=== PATIENT | female | born 1980 | race Caucasian/White ===

== ENCOUNTER 2021-04-24 08:26 | Emergency (ER) | payer MEDICAID, SELFPAY ==
--- NOTE | ~2021-04-24 | CT_ITS ---
EXAMINATION: CT abdomen pelvis w con DATE: 04/24/2021 09:58 INDICATION: Left lower quadrant abdominal pain. TECHNIQUE: Computed tomography (CT) of the abdomen and pelvis was performed with 100 mL Omnipaque 350 intravenous contrast. Automated exposure control and iterative reconstruction technique were employe d. The dose-length product was 403.92 mGy-cm. COMPARISON: None. FINDINGS: The visualized portions of the lung bases demonstrate an 11 mm nodule in left lower lobe co ntaining fat, consistent with a hamartoma. No pleural effusion. The liver, gallbladder, spleen, pancr eas, and adrenal glands are normal. There are 3 stones in right kidney measuring up to 4 mm. There ar e cysts in left kidney measuring up to 16 mm. There is a delayed left-sided contrast nephrogram. Ther e are approximately 9 stones in left kidney measuring up to 2 mm. There is mild left hydronephrosis a nd hydroureter. There is a 3 mm stone at left ureterovesicular junction. There is an intrauterine dev ice in expected position. There are no dilated loops of bowel. The appendix is not visualized. There are surgical changes in the stomach. There are no pathologically enlarged lymph nodes. There is no fr ee intraperitoneal fluid. There is mild thoracic and lumbar spondylosis. IMPRESSION: 1. 3 mm stone at left ureterovesicular junction with mild left hydronephrosis and hydroureter. 2. Small bilateral nonobstructing kidney stones. Reviewed, dictated and finalized at location A. IMPRESSION: 1. 3 mm stone at left ureterovesicular junction with mild left hydronephrosis a nd hydroureter. 2. Small bilateral nonobstructing kidney stones.
[2021-04-24 08:30] VITALS: BP 131/100; PULSE 87; RESP 18; TEMP 36.1; O2SAT 100
[2021-04-24] MEDS: MORPHINE SULFATE (*CRX) 4 MG/ML INJ IV PUSH (09:22)
[2021-04-24] MEDS: ONDANSETRON INJ 4 MG/2 ML VIAL IV PUSH (09:22)
[2021-04-24] MEDS: SODIUM CHLORIDE 0.9% IV 1,000 ML 999 ML IV CONT (09:23)
[2021-04-24 09:34] LABS: Basophils Absolute Auto 0.1 K/mm3 (0.0-0.1); Basophils Percent Auto 0.7 % (0.2-1.2); Eosinophils Absolute Auto 0.2 K/mm3 (0-0.3); Eosinophils Percent Auto 2.8 % (0-4.4); Hematocrit 41.7 % (37.0-47.0); Hemoglobin 13.8 g/dL (12.0-15.0); Immature Granulocyte Absolute 0.02 K/mm3 (0.00-0.031); Immature Granulocyte Percent A 0.2 % (0-0.5); Lymphocytes Absolute Auto 1.97 K/mm3 (0.9-3.2); Mean Corpuscular HGB Conc 33.1 g/dl (32-36); Mean Corpuscular Hemoglobin 31.8 pg (26-34); Mean Corpuscular Volume 96.1 fl (80-100); Mean Platelet Volume 10.8 fl (7.4-10.4); Monocytes Absolute Auto 0.7 K/mm3 (0.1-0.6); Monocytes Percent Auto 8.9 % (2.6-8.5); Neutrophils Absolute Auto 5.2 K/mm3 (1.3-6.7); Neutrophils Percent Auto 63.4 % (45.5-73.1); Platelet Count Result 279 k/mm3 (150-375); Red Blood Count 4.34 M/mm3 (4.2-5.4); Red Cell Distribution Width 12.3 % (11.5-14.5); White Blood Count 8.2 K/mm3 (4.5-10.0)
[2021-04-24 09:41] LABS: Alanine Aminotransferase 18 U/L (4-35); Albumin Level 4.6 g/dL (3.5-5.1); Alkaline Phosphatase 73 U/L (38-126); Anion Gap 8 mmol/L (8-16); Aspartate Amino Transferase 33 U/L (14-36); Bilirubin,Total 0.5 mg/dL (0.2-1.3); Blood Urea Nitrogen 12 mg/dL (7-17); Calcium 9.4 mg/dL (8.4-10.2); Carbon Dioxide 25 mmol/L (22-30); Chloride 101 mmol/L (98-107); Estimated CRCL calculation 54 ml/min; Estimated Glomerular Filt Rate > 60; Glucose 84 mg/dL (65-105); Lipase 84 U/L (23-300); Potassium 3.8 mmol/L (3.4-5.0); Sodium 134 mmol/L (137-145)
[2021-04-24 09:43] LABS: Add Urine Microscopic? YES; Appearance Urine Cloudy (Clear); Bacteria Urine Trace /hpf; Bilirubin Urine Negative (Negative); Blood Urine 2+ (Negative); Color Urine Yellow (Yellow); Glucose Urine UA Negative (Negative); Ketones Urine Negative (Negative); Leukocyte Esterase Ur Negative LEU/UL (Negative); Mucus Urine Rare /lpf; Nitrate Urine Negative (Negative); Protein Urine 1+ mg/dL (Negative); RBC Urine 21-50 /hpf (0-2); Specific Grav Ur 1.019 (1.001-1.035); Squamous Epithelial Cell Urine Few /hpf (Few); Urobilinogen Urine Negative mg/dL (<2.0)
[2021-04-24 10:37] VITALS: BP 120/91; PULSE 84; RESP 18; O2SAT 100
--- NOTE | 2021-04-24 10:58 | ED.ABDPAIN ---
HPI - Abdominal Pain General Chief Complaint: Abdominal Pain Stated Complaint: L Lower Abd Pain Time Seen by Provider: 04/24/21 09:13 Source: patient, family and RN notes reviewed Mode of arrival: ambulatory Limitations: no limitations History of Present Illness HPI narrative: Patient is 40 years old white female presents with left lower quadrant pain that started about 5:30 AM. Patient denies radiation of pain, the pain is associated with nausea, no vomiting. Patient denying having similar symptoms. Past medical drain significant for hypothyroidism and depression. Patient does not smoke or uses drugs, drinks occasionally. Patient is fully vaccinated for COVID-19 Related Data Home Medications Medication Instructions Recorded Confirmed alprazolam See Rx Instructions .ROUTE 04/24/21 04/24/21 .COMPLEX PRN bupropion HCl mg PO DAILY 04/24/21 citalopram mg DAILY 04/24/21 dextroamphetamine-amphetamine 30 mg PO BID 04/24/21 [Adderall] levothyroxine [Synthroid] DAILY 04/24/21 Allergies Allergy/AdvReac Type Severity Reaction Status Date / Time lamotrigine [From Lamictal] Allergy Itching Verified 04/24/21 08:37 metronidazole [From Flagyl] Allergy Itching Verified 04/24/21 08:37 Sulfa (Sulfonamide Allergy Itching Verified 04/24/21 08:37 Antibiotics) Review of Systems Review of Systems: Narrative: CONSTITUTIONAL: Denies fever, chills, or sweats. EYES: Denies visual changes, redness, or discharge. ENT: Denies rhinorrhea, congestion, sore throat, or otalgia. CARDIOVASCULAR: Denies chest pain, palpitations, or edema. RESPIRATORY: Denies cough or dyspnea. GASTROINTESTINAL: Denies abdominal pain, nausea, vomiting, or diarrhea. GENITOURINARY: Denies dysuria or hematuria. SKIN: Denies rash or itching. MUSCULOSKELETAL: Denies back pain, joint pain, or myalgia. NEUROLOGIC: Denies headache, numbness, or weakness. PSYCHIATRIC: Denies anxiety or depression. PMFSH Social History Social History Gender identity (if verbalized by the patient): Female Exam Narrative: Exam Narrative: General appearance: Well-developed, well-nourished, looks restless Skin: Normal color Head: Normocephalic, nontraumatic Eyes: Clear conjunctiva ENT: Oropharynx normal, ears normal, nose normal Neck: Supple, nontender Chest and respiratory: Airway patent, no respiratory distress, no accessory muscle use Heart: Regular rate/rhythm Abdomen: Soft, diffuse tenderness mainly left side. Quiet bowel sounds Vascular: Normal peripheral pulses, normal capillary refill. Musculoskeletal: Normal range of motion, nontender back Neurologic: Alert and oriented ?3, M[employer] is normal as tested, no gross motor deficit Course Course Emergency Course: Stable Vital Signs Vital signs: Vital Signs Temperature 36.1 C L 04/24/21 08:30 Pulse Rate 87 04/24/21 08:30 Respiratory Rate 18 04/24/21 08:30 Blood Pressure 131/100 H 04/24/21 08:30 Pulse Oximetry 100 04/24/21 08:30 Temperature 36.1 C L 04/24/21 08:30 Pulse Rate 84 04/24/21 10:37 Respiratory Rate 18 04/24/21 10:37 Blood Pressure 120/91 H 04/24/21 10:37 Pulse Oximetry 100 04/24/21 10:37 MDM - Abdominal Pain MDM Narrative Medical decision making narrative: Patient presents with sudden onset left abdominal pain. Diverticulitis, constipation, kidney stone my concern. Labs, CT scan abdomen and pelvis, UA showed that patient have showed 3 mm left distal stone. Patient received 1 L of normal saline, morphine 4 mg, Zofran 4 mg, Toradol 30 mg and Flomax 0.4 mg orally. Differential Diagnosis Differential diagnosis: Likely calculus of kidney, constipat
[2021-04-24] MEDS: TAMSULOSIN HCL 0.4 MG CAPSULE PO (11:08)
[2021-04-24] MEDS: KETOROLAC 30 MG/ML VIAL (*BKC) IV PUSH (11:08)
[2021-04-24 12:22] VITALS: BP 138/100; PULSE 92; RESP 18; O2SAT 98
== END 2021-04-24 12:25 | disposition home or self-care (01) ==
PROVIDERS: Emergency Provider Emergency Medicine; PCP Family Medicine
DX: N13.2 Hydronephrosis with renal and ureteral calculous obstruction (principal)
CPT/HCPCS: 36415; 74177; 80053; 81001; 81025; 83690; 85025; 96361; 96374; 96375; 99284; A9270; J1885; J2270; J2405; J7030; Q9967

== ENCOUNTER 2022-01-11 07:49 | Outpatient (CLI) | payer OTHER, SELFPAY ==
--- NOTE | ~2022-01-11 | XR_ITS ---
EXAMINATION: XR abdomen/kub 1V DATE: 01/11/2022 08:07 INDICATION: Calcium kidney stone. TECHNIQUE: A supine view of the abdomen on 2 radiographs was obtained. COMPARISON: CT abdomen and pelvis 01/11/2022 FINDINGS: There are no dilated loops of bowel. The kidneys are obscured by bowel. There are stents in the kidneys measuring up to 4 mm. There is an intrauterine device in expected position. There are ca lcifications in left pelvis with central lucency, likely phleboliths. IMPRESSION: 1. Bilateral kidney stones. Reviewed, dictated and finalized at location A. IMPRESSION: 1. Bilateral kidney stones.
--- NOTE | ~2022-01-11 | CT_ITS ---
EXAMINATION: CT abdomen pelvis wo con DATE: 01/11/2022 08:12 INDICATION: Calcium kidney stone. TECHNIQUE: Computed tomography (CT) of the abdomen and pelvis was performed without intravenous contr ast. Automated exposure control and iterative reconstruction technique were employed. The dose-length product was 233.79 mGy-cm. COMPARISON: CT abdomen and pelvis 04/24/2021 FINDINGS: The visualized portions of the lung bases demonstrate mild linear millimeter nodule in left lower lobe containing fat without change in size, consistent with a hamartoma. No pleural effusion. The heart size is normal. No pericardial effusion. The liver, gallbladder, spleen, pancreas, and adre nal glands are normal. There are 4 stones in right kidney measuring up to 4 mm. There are cysts in le ft kidney measuring up to 16 mm. There are approximately 6 stones in left kidney measuring up to 4 mm . There is an intrauterine device in expected position. There are 3 mm and 4 mm calcifications in lef t pelvis in the expected area of distal left ureter. There are surgical changes in the stomach. There are no dilated loops of bowel. There are no pathologically enlarged lymph nodes. There is mild thora columbar spondylosis. IMPRESSION: 1. New 3 mm and 4 mm calcifications in left pelvis in the expected area of distal left ureter, which are indeterminate for ureteral stones. No hydronephrosis. 2. Bilateral nonobstructing kidney stones. Reviewed, dictated and finalized at location A. IMPRESSION: 1. New 3 mm and 4 mm calcifications in left pelvis in the expected area of dist al left ureter, which are indeterminate for ureteral stones. No hydronephrosis. 2. Bilateral nonobstructing kidney stones.
== END 2022-01-11 07:50 | disposition home or self-care (01) ==
LOC: ANHIMG 07:53
PROVIDERS: PCP Family Medicine; Visit Provider Urology
DX: N20.0 Calculus of kidney (principal)
CPT/HCPCS: 74018; 74176